=== PATIENT | female | born 1985 | race Caucasian/White ===

== ENCOUNTER 2018-11-12 20:21 | Emergency (ER) | payer OTHER ==
[~2018-11-12] VITALS: Ht 157.5 cm; Wt 45.4 kg
--- NOTE | 2018-11-12 20:35 | NUR ---
Patient ambulated with stable gait. Speech is clear, speaks in complete sentences. No neuro deficits. Patient came in for c/o skin irritation on both sides of face s/p getting a hot wax hair removal last night. Patient denies any shortness of breath and redness in skin is localized to the face. Skin is red and similar to appearance of a burn. No GI/ distress noted. Patient in bed at lowest position, sr upx2, call light within reach. Fall precautions implemented per protocol.
[2018-11-12] MEDS ORDERED: SILVER SULFADIAZINE 1% CREAM 50 GM TP ONE (20:45)
[2018-11-12] MEDS ORDERED: SILVER SULFADIAZINE 1% CREAM 25 GM TUBE TP ONE (20:47)
--- NOTE | 2018-11-12 20:57 | NUR ---
Patient discharged to home in stable conditon. Written and verbal after care instructions given. Patient verbalizes understanding of instructions. Patient ambulated with stable gait.
[2018-11-12 20:59] VITALS: BP 100/82
== END 2018-11-12 21:00 | disposition home or self-care (01) ==
LOC: ER 20:21
DX: T20.56XA Corrosion of first degree of forehead and cheek, initial encounter (principal); Y93.89 Activity, other specified; Y92.89 Other specified places as the place of occurrence of the external cause; Y99.8 Other external cause status
CPT/HCPCS: A4663